=== PATIENT | female | born 1950 | race Caucasian/White ===

== ENCOUNTER 2020-02-25 12:38 | Emergency (ER) | payer MEDICARE ==
[~2020-02-25] VITALS: Ht 154.9 cm; Wt 59.0 kg
--- NOTE | 2020-02-25 13:19 | NUR ---
REGINALD WITH CASE MGMT IN WITH PATIENT.
--- NOTE | 2020-02-25 13:24 | NUR ---
paranoid delusions thinks she's preg with twins states daughters is out to get her [place] police wouldnt submit FLAVIA, states our job. social service director here helping with pt care
[2020-02-25 13:29] LABS: BASOPHILS # (AUTO) 0.1 (0.0-0.1); BASOPHILS % 0.6 % (0.0-1.0); EOSINOPHILS # (AUTO) 0.1 (0.0-0.4); HEMATOCRIT 35.2 % (34.2-44.1); HEMOGLOBIN 11.1 g/dL (12.0-16.0); LYMPHOCYTES # (AUTO) 4.5 (1.0-3.2); LYMPHOCYTES % 39.1 % (18.0-39.1); MEAN CORPUSCULAR HEMOGLOBIN 29.4 pg (28-32); MEAN CORPUSCULAR HGB CONC 31.5 g/dL (31-35); MEAN CORPUSCULAR VOLUME 93.4 fL (81-99); MONOCYTES # (AUTO) 0.9 (0.2-0.8); MONOCYTES % 7.7 % (4.4-11.3); NEUTROPHILS # (AUTO) 5.9 (2.1-6.9); NEUTROPHILS % 51.1 % (38.7-80.0); PLATELET COUNT 279 x10e3/uL (140-360); RED BLOOD COUNT 3.77 x10e6/uL (3.6-5.1); RED CELL DISTRIBUTION WIDTH 12.8 % (11.7-14.4)
[2020-02-25 13:38] LABS: CLARITY,URINE SL CLOUDY (CLEAR); COLOR,URINE YELLOW (YELLOW); LEUKOCYTE ESTERASE ,URINE NEGATIVE (NEGATIVE)
[2020-02-25 13:39] LABS: BILIRUBIN,URINE NEGATIVE (NEGATIVE); KETONES,URINE TRACE (NEGATIVE); NITRITE,URINE NEGATIVE (NEGATIVE); PROTEIN,URINE DIPSTICK NEGATIVE (NEGATIVE); URINE UROBILINOGEN 0.2 mg/dL (0.2 - 1)
[2020-02-25 13:46] LABS: ALANINE AMINOTRANSFERASE 20 IU/L (0-55); ALBUMIN 3.6 g/dL (3.5-5.0); ALBUMIN/GLOBULIN RATIO 1.2 (0.8-2.0); ALKALINE PHOSPHATASE 70 IU/L (40-150); ANION GAP 16.1 mmol/L (8-16); BLOOD UREA NITROGEN 9 mg/dL (7-26); BUN/CREATININE RATIO 12 (6-25); CALCIUM 8.7 mg/dL (8.4-10.2); CARBON DIOXIDE 23 mmol/L (22-29); CHLORIDE 106 mmol/L (98-107); CREATINE KINASE 57 IU/L (29-168); CREATININE, SERUM 0.76 mg/dL (0.57-1.11); EST GLOMERULAR FILTRATION RATE > 60 ML/MIN (60-); GLUCOSE 145 mg/dL (74-118); POTASSIUM 3.1 mmol/L (3.5-5.1); SODIUM 142 mmol/L (136-145)
--- NOTE | 2020-02-25 13:48 | NUR ---
CALLED MAT TEAM SPOKE WITH OFFICER JARAD FAY 253, HE FILLED OUT FLAVIA PAPERWORK AND GAVE REPORT THAT DAUGHTER MERARI CHAN [phone] REPORTED TO HIM, LET MAT TEAM KNOW ABOUT FORM AND THE GENERAL COMPLAINTS REPORTED. OFFICER STATES HE WILL STAY UNTIL THE MAT RUG CLIPPER COMES OUT TO SEE PT. GAVE PT INFORMATION TDL OF [id number] AND SSN OF [id number] ADDRESS OF [facility] [address]ETHRO TARIQ, LET NURSE KNOW ABOUT CALL AND UPDATED ADMISSION TO CALL DAUGHTER TO GET INSURANCE INFORMATION.
[2020-02-25 13:53] LABS: BACTERIA,URINE RARE /HPF; EPITHELIAL CELLS,URINE FEW /LPF
--- NOTE | 2020-02-25 14:34 | Diagnostic Imaging Report ---
EXAMINATION: CHEST SINGLE (PORTABLE) INDICATION: Altered mental status COMPARISON: None FINDINGS: LINES/TUBES:None LUNGS:The lungs are moderately inflated. No focal consolidation. Mildly increased interstitial opacities. PLEURA:No pleural effusion or pneumothorax. MEDIASTINUM:The cardiomediastinal silhouette appears normal in size and shape. BONES/SOFT TISSUES:No acute osseous injury. ABDOMEN:No free air under the diaphragm. IMPRESSION: Mildly increased interstitial opacities may represent mild pulmonary interstitial edema. No focal consolidation. Signed by: Katya Rueda MD on 02/25/2020 2:31 PM
--- NOTE | 2020-02-25 14:50 | NUR ---
SITTER IN WITH PT. PT IS IN PAPER SCRUBS AND ALL OBJECTS REMOVABLE IN ROOM HAVE BEEN TAKEN OUT FOR PT SAFTY. PT ALSO WITH MASK WITH METAL REMOVED FROM MASK FOR PT SAFTY BY GEOMETRY PROFESSOR. PT REMAINS COOPERATIVE IN NAD.
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
--- NOTE | 2020-02-25 15:56 | NUR ---
SPOKE WITH MAT TEAM REP HERE, SHE HAS FAXED EVERYTHING TO [facility], WHEN THEY ACCEPT THEY WILL NOTIFY THE COURT TO PROCEED WITH THE FLAVIA COMPLETE IT AND DISPATCH THE WARRANT AND OFFICER TO TRANSPORT TO FACILITY, MOST LIKELY IN AM.
--- NOTE | 2020-02-25 15:57 | NUR ---
CALLED HOUSE SUP AND LET KNOW WILL NEED SITTER UNTIL COMPLETE AND ETA TOMORROW.
--- NOTE | 2020-02-25 16:48 | NUR ---
NURSE TO NURSE WITH REBECCA ABBASI MAT TEAM CALLED TO GIVE DR PHONE NUMBER FOR DOC TO DOC
--- NOTE | 2020-02-25 20:07 | NUR ---
SPOKE TO MAT NURSE GINNY. INFORMED MAT NURSE THAT DR SPARKS SPOKE TO DR SNELL AT [phone].
[2020-02-26] VITALS: BP 135/72
--- NOTE | 2020-02-26 03:43 | NUR ---
PT RESTING QUIETLY IN BED. NO DISTRESS NOTED. RESP EVEN AND UNLABORED ON RA. SITTER REMAINS AT BEDSIDE.
[2020-02-26 04:00] VITALS: BP 137/73
--- NOTE | 2020-02-26 08:08 | NUR ---
CALLED MAT DISPATCH AND WAS TOLD MALVIN IS ON WAY TO GET OPC AND THEN ONCE SIGNED WILL HAND DELIVER TO [facility] THEN WILL CALL WHEN ON WAY TO PICK HER UP, SHE IS ACCEPTED TO [facility].
--- NOTE | 2020-02-26 12:43 | NUR ---
SPOKE WITH REBECCA AT CONSTABLES OFFICE. SHE STATES HER TEAM IS NOT CURRENTLY AVAILABLE HR NEXT TEAM WILL COME IN AT 2PM, I WAS ABLE TO CONFIRM THAT PT IS AMBULATORY AND WILLING TO GO, SHE WILL TRY TO PUSH TO FRONT OF LINE. NOTIFIED ED STAFF OF CONVERSATION.
[2020-02-26 14:53] VITALS: BP 137/69
== END 2020-02-26 14:55 ==
LOC: ER 12:38
DX: F20.9 Schizophrenia, unspecified (principal); F99 Mental disorder, not otherwise specified
CPT/HCPCS: 36415; 71045; 80053; 81001; 82140; 82550; 82553; 84484; 85025; 99284